=== PATIENT | male | born 1980 | race Caucasian/White ===

== ENCOUNTER → 2018-09-15 | Outpatient (REF) | payer BC | LOC: M LAB REF 12:20 | PROVIDERS: ATTEND Physician Assistant Medical | DX: J02.9 Acute pharyngitis, unspecified (principal) ==

== ENCOUNTER → 2019-01-03 | Outpatient (REF) | payer OTHER ==
[2019-01-03 14:29] LABS: BASO % 0.6 % (0.0-1.0); EOS # 0.2 10^3/uL (0.0-0.50); EOS % 2.2 % (0.0-3.0); HEMATOCRIT 45.6 % (42.0-52.0); LYMPH # 1.7 10^3/uL (1.5-4.5); LYMPH % 25.9 % (24.0-44.0); MEAN CORPUSCULAR HEMOGLOBIN 31.8 pg (27.0-33.0); MEAN CORPUSCULAR HGB CONC 32.9 g/dl (32.0-36.5); MEAN CORPUSCULAR VOLUME 96.6 fl (80.0-96.0); MONO # 0.6 10^3/uL (0.0-0.8); MONO % 9.3 % (0.0-5.0); NEUTROPHILS # 4.1 10^3/uL (1.8-7.7); NEUTROPHILS % 61.3 % (36.0-66.0); PLATELET COUNT, AUTOMATED 221 10^3/uL (150-450); RED BLOOD COUNT 4.72 10^6/uL (4.30-6.10); WHITE BLOOD COUNT 6.7 10^3/uL (4.0-10.0)
[2019-01-03 15:45] LABS: MONO REFLEX EBV COMP NEGATIVE (NEGATIVE)
[2019-01-07 00:06] LABS: EBV AB TO NUCLEAR ANTIGEN 21.4 U/mL (0.0-17.9); EBV VIRAL CAPSID AG IgM <36.0 U/mL (0.0-35.9)
== END ==
LOC: M LAB REF 13:26 → M LABDRWAD 13:26
PROVIDERS: ATTEND Physician Assistant Medical
DX: M54.2 Cervicalgia (principal)

== ENCOUNTER → 2019-01-03 | Outpatient (CLI) | payer OTHER ==
--- NOTE | 2019-01-03 11:33 | REP ---
SOFT TISSUE NECK, THREE VIEWS: HISTORY: Cervicalgia. The cervical spine is visualized from C1 to the C6-7 level in the lateral radiograph. There is no acute fracture or subluxation. The C4-5 intervertebral disc is decreased in height consistent with disc degeneration. Soft tissues are normal in appearance. IMPRESSION: Degenerative change as described above. Electronically Signed by Min Gutierrez MD 01/03/2019 11:39 A
== END ==
LOC: M ADAMS 09:32
PROVIDERS: ATTEND Physician Assistant Medical
DX: M50.321 Other cervical disc degeneration at C4-C5 level (principal)

== ENCOUNTER → 2019-06-22 | Outpatient (REF) | payer OTHER | LOC: M LAB REF 08:47 | PROVIDERS: ATTEND Physician Assistant Medical | DX: J02.9 Acute pharyngitis, unspecified (principal) ==

== ENCOUNTER 2021-08-05 10:39 | Emergency (ER) | payer OTHER ==
[~2021-08-05] VITALS: Ht 180.3 cm; Wt 120.5 kg
[2021-08-05] MEDS ORDERED: IVER1TAB PO (12:00)
[2021-08-05] MEDS ORDERED: ALBUTEROL 90 MCG/ACT 8GM HFA INHALER INH ONE (12:05)
[2021-08-05] MEDS ORDERED: VENTAER INH (13:08)
[2021-08-05 13:15] VITALS: BP 124/78
== END 2021-08-05 13:15 | disposition home or self-care (01) ==
LOC: M ED 10:39
DX: U07.1 COVID-19 (principal); R06.02 Shortness of breath

== ENCOUNTER 2023-02-21 00:20 | Emergency (ER) | payer OTHER, SELFPAY ==
[~2023-02-21] VITALS: Ht 177.8 cm; Wt 121.4 kg
[~2023-02-21 00:20] MED LIST: IVER1TAB PO; VENTAER INH
[2023-02-21] MEDS ORDERED: AMOX500C (02:47)
[2023-02-21] MEDS ORDERED: PERC5TAB12 PO (03:38)
[2023-02-21] MEDS ORDERED: OXYCODONE/APAP 5MG/325MG(HOME DOSE PACK) PO ONE (03:40)
[2023-02-21 04:13] VITALS: BP 152/64; TEMP 97.4; O2SAT 99
== END 2023-02-21 04:15 | disposition home or self-care (01) ==
LOC: M ED 00:20
DX: K08.9 Disorder of teeth and supporting structures, unspecified (principal); I10 Essential (primary) hypertension; Z86.16 Personal history of COVID-19

== ENCOUNTER → 2024-07-27 | Outpatient (REF) | payer OTHER ==
[~2024-07-27] MED LIST changes: +AMOX500C; +PERC5TAB12 PO
[2024-07-27 14:27] LABS: ALBUMIN 4.5 G/DL (3.2-5.2); BILIRUBIN,TOTAL 1.5 MG/DL (0.3-1.2); CALCIUM LEVEL 10.1 MG/DL (8.5-10.1); CHOLESTEROL RISK RATIO 4.72 (<5); CREATININE FOR GFR 1.43 MG/DL (0.70-1.30); GLOMERULAR FILTRATION RATE 57.5 (>60); HDL CHOLESTEROL 54.8 MG/DL (>40); LDL CHOLESTEROL 188.4 MG/DL (<100); NON-HDL-C 204.2 MG/DL; POTASSIUM SERUM 3.7 MMOL/L (3.5-5.1)
== END ==
LOC: M SFHCADAM 08:42
PROVIDERS: ATTEND Physician Assistant
DX: N52.9 Male erectile dysfunction, unspecified (principal); F32.1 Major depressive disorder, single episode, moderate; Z13.220 Encounter for screening for lipoid disorders; Z13.1 Encounter for screening for diabetes mellitus